=== PATIENT | female | born 1985 | race African-American/Black ===

== ENCOUNTER 2019-01-25 17:46 | Emergency (ER) | payer OTHER ==
[~2019-01-25] VITALS: Ht 170.2 cm; Wt 60.0 kg
[2019-01-25] MEDS ORDERED: METHOCARBAMOL 500MG TABLET PO ONE (18:30)
[2019-01-25] MEDS ORDERED: KETOROLAC 30MG/ML VIAL IM ONE (18:30)
[2019-01-25 18:58] VITALS: BP 140/96
== END 2019-01-25 19:30 | disposition home or self-care (01) ==
LOC: ER 17:46
DX: M54.2 Cervicalgia (principal); V89.2XXA Person injured in unspecified motor-vehicle accident, traffic, initial encounter; Y93.89 Activity, other specified; Y92.89 Other specified places as the place of occurrence of the external cause; Y99.8 Other external cause status
CPT/HCPCS: 96372; 99283; J1885